=== PATIENT | female | born 1995 | race Caucasian/White ===

== ENCOUNTER → 2016-09-02 | Outpatient (CLI) | payer OTHER ==
[~2016-09-02] MED LIST: IOPAMIDOL (ISOVUE-300) 100 ML BTL IV ONE
== END ==
LOC: FIMAGING 12:49
PROVIDERS: ATTEND Nurse Practitioner Adult Health
DX: R10.30 Lower abdominal pain, unspecified (principal); N83.202 Unspecified ovarian cyst, left side; Z97.5 Presence of (intrauterine) contraceptive device
CPT/HCPCS: Q9967

== ENCOUNTER 2017-05-08 22:48 | Emergency (ER) | payer OTHER ==
[2017-05-08 22:56] VITALS: RESP 18
[2017-05-08] MEDS ORDERED: LORazepam 1 MG TAB PO ONE (23:11)
[2017-05-08] MEDS ORDERED: LORazepam 1 MG TAB ONE (23:11)
[2017-05-08 23:59] VITALS: PULSE 86; O2SAT 98
[2017-05-09] MEDS ORDERED: NS 1,000 ML IV ONE (00:07)
--- NOTE | 2017-05-09 00:07 | EDPHY ---
H & P Stated Complaint: panic attack - Personal History LMP (Females 10-55): IUD In Place Current Tetanus/Diphtheria Vaccine: Yes Current Tetanus Diphtheria and Acellular Pertussis (TDAP): Yes - Medical/Surgical History Hx Asthma: No Hx Chronic Respiratory Disease: No Hx Diabetes: No Hx Cardiac Disease: No Hx Renal Disease: No Hx Cirrhosis: No Hx Alcoholism: No Hx HIV/AIDS: No Hx Splenectomy or Spleen Trauma: No - Social History Smoking Status: Never smoked HPI/ROS: Chief complaint: Panic attack History of present illness: This is a 22-year-old female who presents to the emergency department concerned she is having a panic attack. Symptoms began this evening. She states she has had him in the past, most recently a week ago. She states she just feels very anxious. She is wondering if this is secondary to the fact that she took Vyvanse for the 1st time in a long time earlier today and also had some alcohol. She denies other associated signs or symptoms including no fevers, no cold-like symptoms, no chest pain, no trouble breathing, no pain or swelling in the legs. Review of systems: A 10 point review of systems was obtained and other than described above was negative (Ramone Addison) - Physical Exam Exam: General Appearance: Alert, nontoxic, upset and tearful. Eyes: Pupils equal and round no pallor or injection. ENT, Mouth: Mucous membranes moist. Respiratory: There are no retractions, lungs are clear to auscultation. Cardiovascular: Regular rate and rhythm. Gastrointestinal: Abdomen is soft and non tender, no masses, bowel sounds normal. Neurological: Alert and oriented x4. Strength and sensation intact and symmetrical. Skin: Warm and dry, no rashes. Musculoskeletal: Neck is supple non tender. Extremities are symmetrical, full range of motion. Psychiatric: Patient is oriented X 3, there is no agitation. (Ramone Addison) Constitutional: Initial Vital Signs Temperature (C) 36.3 C 05/08/17 22:51 Heart Rate 110 H 05/08/17 22:51 Respiratory Rate 18 05/08/17 22:51 Blood Pressure 94/64 L 05/08/17 22:51 O2 Sat (%) 97 05/08/17 22:51 O2 Delivery Mode Room Air Allergies/Adverse Reactions: No Known Allergies Allergy (Unverified 05/08/17 22:50) Home Medications: Medication Instructions Recorded VYVAMBERNolan 05/08/17 Medical Decision Making ED Course/Re-evaluation: Patient discussed with my secondary supervising physician Dr. Alyssa Bundy. Patient presents to the emergency department for what she believes is an anxiety attack. She is very tearful. EKG and blood studies are unremarkable. She is given Ativan with improvement in symptoms. She is comfortable being discharged home. Home care is discussed. Return precautions are given. Patient voiced understanding and agreement with plan. (Ramone Addison) PHYSICIAN DOCUMENTATION: The patient was evaluated and managed by the Physician Level Vial Grinder. My co- signature indicates that I have reviewed this chart and I agree with the findings and plan of care as documented. I am the secondary supervising physician. (Alyssa Bundy) Differential Diagnosis: Included but not limited to anxiety, cardiac dysrhythmia, electrolyte disturbances (Ramone Addison) - Data Points Laboratory Results: Laboratory Results 05/09/17 00:15 05/09/17 00:15 05/09/17 05/09/17 05/09/17 00:15 00:15 00:15 WBC 7.75 10^3/uL 10^3/uL (3.80-9.50) RBC 4.45 10^6/uL 10^6/uL (4.18-5.33) Hgb 14.9 g/dL g/dL (12.6-16.3) Hct 40.8 % % (38.0-47.0) MCV 91.7 fL fL (81.5-99.8) MCH 33.5 pg pg (27.9-34.1) MCHC 36.5 g/dL g/dL (32.4-36.7) RDW 12.0 % % (11.5-15.2) Plt Count 229 10^3/uL 10^3/uL (150-400) MPV 9.7 fL fL (8.7-11.7) Neut % (Auto) 49.7 % % (39.3-74.2) Lymph % (Auto) 41.5 % % (15.0-45.0) Haakon % (Auto) 6.1 % % (4.5-13.0) Eos % (Auto) 1.9 % % (0.6-7.6) Baso % (Auto) 0.5 % % (0.3-1.7) Nucleat RBC Rel Count 0.0 % % (0.0-0.2) Absolute Neuts (auto) 3.85 10^3/uL 10^3/uL (1.70-6.50) Absolute Lymphs (auto) 3.22 10^3/uL H 10^3/uL (1.00-3.00) Absolute Monos (auto) 0.47 10^3/uL 10^3/uL (0.30-0.80) Absolute Eos (auto) 0.15 10^3/uL 10^3/uL (0.03-0.40) Absolute Basos (auto) 0.04 10^3/uL 10^3/uL (0.02-0.10) Absolute Nucleated RBC 0.00 10^3/uL 10^3/uL (0-0.01) Immature Gran % 0.3 % % (0.0-1.1) Immature Gran # 0.02 10^3/uL 10^3/uL (0.00-0.10) Sodium 147 mEq/L H mEq/L (134-144) Potassium 3.8 mEq/L mEq/L (3.5-5.2) Chloride 110 mEq/L mEq/L (97-110) Carbon Dioxide 18 mEq/l L mEq/l (22-31) Anion Gap 19 mEq/L H mEq/L (8-16) BUN 10 mg/dL mg/dL (7-23) Creatinine 0.7 mg/dL mg/dL (0.6-1.0) Estimated GFR > 60 Glucose 79 mg/dL mg/dL (70-100) Calcium 9.4 mg/dL mg/dL (8.5-10.4) Beta HCG, Qual NEGATIVE Medications Given: Discontinued Medications Sodium Chloride (Ns) 1,000 mls @ 0 mls/hr IV ONCE ONE; Wide Open PRN Reason: Protocol Stop: 05/09/17 00:08 Last Admin: 05/09/17 00:20 Dose: 1,000 mls Lorazepam (Ativan) 1 mg PO EDNOW ONE Stop: 05/08/17 23:12 Last Admin: 05/08/17 23:12 Dose: 1 mg Departure - Departure Disposition: Home, Routine, Self-Care Clinical Impression: Anxiety Condition: Good Instructions: Anxiety (ED) Additional Instructions: Follow-up with a primary care doctor for recheck If symptoms worsen or new symptoms develop return to the emergency room for recheck Referrals: NONE *PRIMARY CARE P,. [Primary Care Provider] - As per Instructions [facility] [[facility]] - As per Instructions
--- NOTE | 2017-05-09 00:22 | CPEKG ---
Heart Rate: 82 RR Interval: 732 P-R Interval: 168 QRSD Interval: 78 QT Interval: 388 QTC Interval: 453 P Washburn: 46 QRS Washburn: 57 T Wave Washburn: -20 EKG Severity - BORDERLINE ECG - EKG Impression: SINUS RHYTHM EKG Impression: BORDERLINE T ABNORMALITIES, INFERIOR LEADS Electronically Signed By: Alyssa Bundy 09-May-2017 05:56:38
[2017-05-09 00:47] LABS: ANION GAP 19 mEq/L (8-16); CALCIUM 9.4 mg/dL (8.5-10.4); CARBON DIOXIDE 18 mEq/l (22-31); CHLORIDE 110 mEq/L (97-110); CREATININE 0.7 mg/dL (0.6-1.0); GLOMERULAR FILTRATION RATE > 60; GLUCOSE 79 mg/dL (70-100); POTASSIUM 3.8 mEq/L (3.5-5.2); SODIUM 147 mEq/L (134-144)
[2017-05-09 00:52] LABS: % IMMATURE GRANULYOCYTES 0.3 % (0.0-1.1); ABSOLUTE IMMATURE GRANULOCYTES 0.02 10^3/uL (0.00-0.10); ADD DIFF? NO; ADD MORPH? NO; ADD SCAN? NO; ATYPICAL LYMPHOCYTE FLAG 0 (0-99); FRAGMENT RBC FLAG 0 (0-99); HEMATOCRIT 40.8 % (38.0-47.0); HEMOGLOBIN 14.9 g/dL (12.6-16.3); LEFT SHIFT FLG 0 (0-99); LIPEMIA HEMOLYSIS FLAG 90 (0-99); MEAN CELL HEMOGLOBIN 33.5 pg (27.9-34.1); MEAN CELL HEMOGLOBIN CONCENTR. 36.5 g/dL (32.4-36.7); MEAN CELL VOLUME 91.7 fL (81.5-99.8); MEAN PLATELET VOLUME 9.7 fL (8.7-11.7); PLATELET CLUMPS FLAG 0 (0-99); PLATELET COUNT 229 10^3/uL (150-400); RED BLOOD CELL COUNT 4.45 10^6/uL (4.18-5.33)
[2017-05-09 01:08] VITALS: BP 118/64; TEMP 99
== END 2017-05-09 01:07 | disposition home or self-care (01) ==
DX: F41.9 Anxiety disorder, unspecified (principal); E86.9 Volume depletion, unspecified

== ENCOUNTER → 2017-12-03 | Outpatient (CLI) | payer OTHER | LOC: BMCIMAGING 08:40 | PROVIDERS: ATTEND Family Medicine | DX: S89.91XA Unspecified injury of right lower leg, initial encounter (principal) ==

== ENCOUNTER 2018-08-31 06:58 | Emergency (ER) | payer OTHER ==
[2018-08-31 07:04] VITALS: BP 112/80
[2018-08-31] MEDS ORDERED: IBUPROFEN 600 MG TAB PO ONE (07:12)
--- NOTE | 2018-08-31 07:17 | EDPHY ---
H & P Time Seen by Provider: 08/31/18 07:16 HPI/ROS: Chief complaint. Ankle injury HPI. 23-year-old female was playing soccer last night. She collided with another player and was knocked down. She injured her right ankle but is not quite sure how it twisted or how she fell. She had immediate pain. She was able to bear weight though it was painful. This morning difficulty bearing weight. She is using crutches. She denies any other injuries. No previous ankle injury or fracture. Did not strike her head or lose consciousness. No neck pain. ROS 10 systems were reviewed and negative with the exception of the elements mentioned in the history of present illness Past Medical/Surgical History: Attention deficit hyperactivity disorder Social History: Single, nonsmoker, no alcohol Smoking Status: Never smoked Physical Exam: General Appearance: Alert pleasant well-developed female mild distress vital signs are stable Eyes: Pupils equal and round no pallor or injection. ENT, Mouth: Mucous membranes are moist. Respiratory: There are no retractions, lungs are clear to auscultation. Cardiovascular: Regular rate and rhythm. Gastrointestinal: Abdomen is soft and nontender, no masses, bowel sounds normal. Neurological: Awake and alert, sensory and motor exams grossly normal. Skin: Warm and dry, no rashes. Musculoskeletal: Neck is supple nontender. Extremities swelling around the lateral malleolus. Tenderness inferior to the lateral malleolus. Some tenderness above the medial malleolus. No tenderness over the Achilles tendon, calcaneus, base of the 5th metatarsal. Distal motor vascular sensitivity is intact Psychiatric: Patient is oriented X 3, there is no agitation. Constitutional: Initial Vital Signs Temperature (C) 36.6 C 08/31/18 07:01 Heart Rate 79 08/31/18 07:01 Respiratory Rate 16 08/31/18 07:01 Blood Pressure 112/80 08/31/18 07:01 O2 Sat (%) 98 08/31/18 07:01 O2 Delivery Mode Room Air Allergies/Adverse Reactions: No Known Allergies Allergy (Unverified 05/08/17 22:50) Home Medications: Medication Instructions Recorded VYVANSE 05/08/17 Hydrocodone/APAP 5/325 [[place] 1 each PO Q4-6PRN PRN #10 tab 08/31/18 5/325 (*)] Medical Decision Making - Diagnostics Imaging Results: X-ray right ankle interpreted by me is negative for fracture dislocation. Procedures: Velcro stirrup splint is applied. Her crutches are adjusted. Post splint application reviewed by me shows good anatomic position and distal motor vascular sensitivity to be intact ED Course/Re-evaluation: Re-evaluation 7:25 a.m.. Patient is stable. She and I discussed imaging study results, treatment plan including criteria for return and importance of follow- up and further evaluation. She expresses understanding and agreement Differential Diagnosis: This appears to be sprain. I considered fracture and dislocation - Data Points Medications Given: Discontinued Medications Ibuprofen (Motrin) 600 mg PO EDNOW ONE Stop: 08/31/18 07:13 Last Admin: 08/31/18 07:15 Dose: 600 mg Departure - Departure Disposition: Home, Routine, Self-Care Clinical Impression: Right ankle sprain Qualifiers: Encounter type: initial encounter Involved ligament of ankle: unspecified ligament Qualified Code(s): S93.401A - Sprain of unspecified ligament of right ankle, initial encounter Condition: Good Instructions: Ankle Sprain (ED), Ankle Stirrup Splint (ED) Additional Instructions: Ice and elevation next 24 hr. Splint and crutches for 1 week Ibuprofen 600 mg every 6 hr for pain. Hydrocodone in addition if necessary for pain. Hydrocodone contain some Tylenol. Do not take extra Tylenol if you're using the hydrocodone. May use hydrocodone and ibuprofen together Return for worsening symptoms Follow-up in 5-7 days for re-evaluation for continuing symptoms Referrals: NONE *PRIMARY CARE P,. [Primary Care Provider] - As per Instructions Nelson Munoz MD [Medical Doctor] - 5-7 days, if not improved Prescriptions: Hydrocodone/APAP 5/325 [[place] 5/325 (*)] 1 each PO Q4-6PRN PRN #10 tab PRN Reason: Pain, Moderate
== END 2018-08-31 07:43 | disposition home or self-care (01) ==
DX: S82.61XA Displaced fracture of lateral malleolus of right fibula, initial encounter for closed fracture (principal); W50.0XXA Accidental hit or strike by another person, initial encounter; Y93.66 Activity, soccer; F90.9 Attention-deficit hyperactivity disorder, unspecified type
CPT/HCPCS: L4350